=== PATIENT | male | born 1935 | race Caucasian/White ===

== ENCOUNTER 2022-06-29 09:56 | Day surgery (SDC) | payer MEDICARE, OTHER ==
[2022-06-29] MEDS ORDERED: Epinephrine Preservative Free 1 MG/ML IJ ONE (09:57)
[2022-06-29] MEDS ORDERED: NON-FORMULARY ITEM OP ONE (10:00)
[2022-06-29] MEDS ORDERED: BETADINE 5% OPHTHALMIC 30 ML OP ONE (10:00)
[2022-06-29] MEDS ORDERED: TETRACAINE 0.5% STERI-UNIT SOL OP ONE (10:00)
[2022-06-29] MEDS ORDERED: cefUROXime sodium 0.005 GM in Sodium Chloride Flush 30 ML*** 0.5 ML IJ ONE (10:00)
[2022-06-29] MEDS ORDERED: Lactated Ringers 1,000 ML IV SCH (10:00)
[2022-06-29] MEDS ORDERED: Ak-Dilate OPHTHALMIC*** 1.065 ML, Cyclogyl 1% OPHTH SOL 1.065 ML, GATIFLOXACIN 0.5% OPH... OP ONE ×4 (10:00)
[2022-06-29] MEDS ORDERED: Lactated Ringers 1,000 ML IV ONE (10:14)
[2022-06-29] MEDS: TETRACAINE 0.5% STERI-UNIT SOL OP ONE ×2 (10:58→11:24)
[2022-06-29] MEDS ORDERED: ACETAZOLAMIDE 250 MG TABLET PO ONE (11:00)
[2022-06-29] MEDS ORDERED: Zofran 4 MG/2 ML VIAL IV PRN (11:00)
[2022-06-29 11:15] LABS: INR 1.04 (0.8-3.0); PROTIME 11.3 SECONDS (9.4-12.5)
[2022-06-29] MEDS ORDERED: Xylocaine-Mpf 2% 5 Ml Vial ONE (11:37)
[2022-06-29] MEDS ORDERED: DIPRIVAN 200 MG/20 ML IV ONE (11:37)
[2022-06-29 12:18] VITALS: BP 115/92; PULSE 87; O2SAT 99
== END 2022-06-29 12:27 | disposition home or self-care (01) ==
LOC: SDC 09:56
PROVIDERS: ATTEND Ophthalmology
DX: H25.811 Combined forms of age-related cataract, right eye (principal); Z79.01 Long term (current) use of anticoagulants
CPT/HCPCS: 36415; 85610; 99100; C1780; J0171; J2704; A9270-GY

== ENCOUNTER 2024-02-18 13:47 | Emergency (ER) | payer MEDICARE, OTHER ==
[2024-02-18 14:01] VITALS: BP 128/88; PULSE 92; RESP 18; TEMP 97.2; O2SAT 100
--- NOTE | 2024-02-18 14:09 | ERPHSYRPT ---
- History of Present Illness Time Seen by Provider: 02/18/24 14:03 Source: patient, family Exam Limitations: no limitations Patient Subjective Stated Complaint: pt here for bleeding to face from a bx site yesterday, Triage Nursing Assessment: pt walked in, resp easy, skin w/d/p. holding dressing to right side of face, no bleeding at present time, Physician History: Patient is 88-year-old male with significant past medical history of severe deafness recently patient underwent biopsy for the lesion on his face which was basal cell carcinoma and afterward patient underwent laser treatment of that lesion on the right side of the face nearby angle of the mouth. Bandage was applied which she removed today morning and started oozing some blood from that side. Patient is on Eliquis. Patient denies any other symptoms. Timing/Duration: today Severity: mild Associated Symptoms: denies symptoms Allergies/Adverse Reactions: No Known Drug Allergies Allergy (Verified 02/18/24 13:56) Home Medications: Verapamil HCl [Verapamil ER Pm] 200 mg PO HS 03/22/13 [History] Apixaban [Eliquis 2.5 mg Tablet] 2.5 mg PO BID 06/28/22 [History] Docusate Sodium 100 mg [Docusate Sodium 100 MG] 100 mg PO DAILY 06/28/22 [History] Finasteride 5 mg [Proscar 5 MG] 5 mg PO DAILY 06/28/22 [History] Furosemide 20 mg [Lasix 20 mg] 20 mg PO DAILY 06/28/22 [History] Metoprolol Succinate 50 mg [Toprol Xl 50 MG] 25 mg PO DAILY 06/28/22 [History] Hx Influenza Vaccination/Date Given: Yes Hx Pneumococcal Vaccination/Date Given: Yes (2011) Immunizations Up to Date: Yes Travel Risk - International Travel Have you traveled outside of the country in past 3 weeks: No - Emerging Infectious Disease Are you exhibiting symptoms associated with any current EIDs: No - Review of Systems Constitutional: No Symptoms Eyes: No Symptoms Ears, Nose, & Throat: No Symptoms Respiratory: No Symptoms Abdominal/Gastrointestinal: No Symptoms Genitourinary Symptoms: No Symptoms Musculoskeletal: No Symptoms Skin: No Symptoms Neurological: No Symptoms Psychological: No Symptoms Endocrine: No Symptoms Hematologic/Lymphatic: Easy Bleeding Immunological/Allergic: No Symptoms - Past Medical History Pertinent Past Medical History: Yes Neurological History: No Pertinent History ENT History: No Pertinent History Cardiac History: No Pertinent History Respiratory History: No Pertinent History Endocrine Medical History: No Pertinent History Musculoskeletal History: Osteoarthritis GI Medical History: Hemorrhoids, Polyps History: Bladder Cancer Psycho-Social History: No Pertinent History Male Reproductive Disorders: Prostate Problems Other Medical History: PMH: NEOPLASM (BENIGN) OF BLADDER, [place], A FIB, HX OF BLADDER CANCER, PROSTATE PROBLEMS. PSH: NONE - Past Surgical History Past Surgical History: Yes Neuro Surgical History: No Pertinent History Cardiac: No Pertinent History Respiratory: No Pertinent History Gastrointestinal: No Pertinent History, Other Genitourinary: No Pertinent History Musculoskeletal: No Pertinent History Male Surgical History: No Pertinent History Other Surgical History: bladder surgery removed tumor, skin lesions removed and colon polyps removed. - Social History Smoking Status: Former smoker Exposure to second hand smoke: No Drug Use: none Patient Lives Alone: No - Social Determinants of Health Will the patient participate in the screening: Unable to obtain Comment: pt shaun and vincent answer - Nursing Vital Signs Nursing Vital Signs: Initial Vital Signs Temperature 97.2 F 02/18/24 14:01 Pulse Rate 92 H 02/18/24 14:01 Respiratory Rate 18 02/18/24 14:01 Blood Pressure 128/88 02/18/24 14:01 O2 Sat by Pulse Oximetry 100 02/18/24 14:01 Pain Scale Pain Intensity 0 - Physical Exam General Appearance: no apparent distress Eye Exam: PERRL/EOMI Ears, Nose, Throat Exam: normal ENT inspection Neck Exam: normal inspection Respiratory Exam: normal breath sounds Cardiovascular Exam: regular rate/rhythm Gastrointestinal/Abdomen Exam: soft Back Exam: normal inspection Extremity Exam: normal inspection Neurologic Exam: alert, oriented x 3, cooperative, careers adviser II-XII nml as tested Skin Exam: normal color, other (minimal oozing of blood fron biopsy site ) SpO2 Interpretation: normal SpO2: 100 O2 Delivery: Room Air - Course Nursing assessment & vital signs reviewed: Yes - Progress Progress: improved Progress Note: 02/18/24 14:08 Surgecel applied to prevent oozing Counseled pt/family regarding: diagnosis, need for follow-up Medical Desision Making - Independent Historian Additional History obtained from: Family - Risk of complications Minimal Risk: Minimal risk of morbidity - Departure Departure Disposition: Home Clinical Impression: Oozing skin inflammation, Bleeding from wound Condition: Stable Critical Care Time: No Referrals: CHACE MARTINEZ MD [Primary Care Provider] - Follow up/PCP as directed Additional Instructions: Discharge/Care Plan ORQUIDEA WYATT was seen on 02/18/24 in the Emergency Room. The patient was counseled regarding Diagnosis,Lab results, Imaging studies, need for follow up and when to return to the Emergency Room. Prescriptions given: Discharge Note I have spoken with the patient and/or caregivers. I have explained the patient's condition, diagnosis and treatment plan based on the information available to me at this time. I have answered the patient's and/or caregiver's questions and addressed any concerns. The patient and/or caregivers have as good understanding of the patient's diagnosis, condition and treatment plan as can be expected at this point. The vital signs have been stable. The patient's condition is stable and appropriate for discharge from the emergency department. The patient will pursue further outpatient evaluation with the primary care physician or other designated or consulting physician as outlined in the discharge instructions. The patient and/or caregivers are agreeable to this plan of care and follow-up instructions have been explained in detail. The patient and/or caregivers have received these instruction. The patient/and or caregivers are aware that any significant change in condition or worsening of symptoms should prompt an immediate return to this or the closest emergency department or call 911. ORQUIDEA WYATT was seen on 02/18/24 n the Emergency Room. At that time you were treated for an emergent condition, during your visit Laboratory, Radiology and/or other procedures may have been ordered. It is very important that you follow-up with your Primary Care Physician CHACE MARTINEZ within the next 24- 48 hours to review your Emergency Room visit and the final results of testing that was ordered. Some test results such as Urine Cultures, Blood Cultures, and other cultures if ordered will not be finalized for 24-48 hours. If you do not have a Primary Care Provider please call the medical records department at [phone] ext [phone] to obtain a copy of your results or you may sign into our patient portal to obtain these results by visiting us @ [email or web address] and completing the following steps: 1. Click on the Patient Portal link 2. Click the Patient Self Enrollment Link to complete the enrollment form and entering your 3. Once the enrollment form is completed you will receive an email with a temporary ID and password at the email address you provided. 4. Next choose a user name and password. Your user name must be at least 4 characters long and your password must be at least 4 characters long. 5. Choose a security question from the list and provide your answer to the question. If you already have signed into the Health Portal you may access your Health Care Information 01/11 by the following steps: 1. Login to our website @ [email or web address] 2. Enter your original user name and password. FAQS The [facility] Health Portal is an online tool that contains your Lab Results, Radiology Reports, Visit History, Discharge Instructions and Health Summary Lab and Radiology Results will not be available for 72 hours on the portal. The Portal is a secure site, passwords are encryted and URLs are re-written so they cannot be copied and pasted. You and authorized family members are the only ones who can access your Portal. Also there is a timeout feature that protects your information if you leave the Portal page open. If you have technical difficulty please use the Contact Us link on the page this will allow you to submit any questions you have regarding the Portal or you may contact the Medical Record Department at [phone] ext [phone].
== END 2024-02-18 14:25 | disposition home or self-care (01) ==
LOC: ED 13:47
DX: L76.21 Postprocedural hemorrhage of skin and subcutaneous tissue following a dermatologic procedure (principal); Z79.01 Long term (current) use of anticoagulants; Z79.899 Other long term (current) drug therapy; H91.90 Unspecified hearing loss, unspecified ear
CPT/HCPCS: 99281